=== PATIENT | male | born 1970 | race Caucasian/White ===

== ENCOUNTER 2024-01-06 13:14 | Outpatient (CLI) | payer OTHER, SELFPAY | END 2024-01-06 13:15 | disposition home or self-care (01) | PROVIDERS: PCP Family Medicine; Visit Provider Family Medicine | DX: Z01.818 Encounter for other preprocedural examination (principal); Z12.5 Encounter for screening for malignant neoplasm of prostate | CPT/HCPCS: 80048; G0103 ==

== ENCOUNTER 2024-01-16 08:20 | Outpatient (CLI) | payer OTHER, SELFPAY ==
--- NOTE | 2024-01-16 08:50 | W.ANESCHARGE ---
Anesthesia Charges Start Date/Time Anesthesia Start Date: 01/16/24 Anesthesia Start Time: 09:03 Stop Date/Time Anesthesia Stop Date: 01/16/24 Anesthesia Stop Time: 09:33
--- NOTE | 2024-01-16 09:57 | W.ANESCHARGE ---
Anesthesia Charges Start Date/Time Anesthesia Start Date: 01/16/24 Anesthesia Start Time: 09:03 Stop Date/Time Anesthesia Stop Date: 01/16/24 Anesthesia Stop Time: 09:33
== END 2024-01-16 08:21 | disposition home or self-care (01) ==
LOC: OP CLINIC 08:21
PROVIDERS: PCP Family Medicine; Visit Provider Internal Medicine
DX: Z12.11 Encounter for screening for malignant neoplasm of colon (principal); Z80.0 Family history of malignant neoplasm of digestive organs
CPT/HCPCS: 00812; 45378; J2704